=== PATIENT | female | born 2005 | race Caucasian/White ===

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

== ENCOUNTER 2023-01-21 09:48 | Emergency (ER) | payer OTHER, SELFPAY ==
[2023-01-21 10:00] VITALS: BP 115/78; PULSE 82; RESP 16; TEMP 37.2; O2SAT 100
--- NOTE | 2023-01-21 10:05 | WPDEDEXPGENP ---
HPI - General Ped General Chief complaint: Headache Stated complaint: Headaches;fevers History of Present Illness HPI narrative: patient presents with a headache. Patient reports not the worse headache of her life . Patient states she missed work due to her headache and needs a work note. Patient states she has taken Tylenol with no relief does not have any ibuprofen at home to take. Noted eyes is no vomiting states this is the typical headaches and she has had the accident 1 year ago. Patient states she has an appoint with her PCP but is not for a couple weeks. Related Data Home Medications Medication Instructions Recorded Confirmed etonogestrel 68 mg subdermal 1 implant subdermal ONCE 07/20/20 03/01/21 implant (Nexplanon) Allergies Allergy/AdvReac Type Severity Reaction Status Date / Time No Known Allergies Allergy Verified 03/01/21 14:46 Pediatric Review of Systems Review of Systems: CONSTITUTIONAL: Denies fever, chills, or sweats. EYES: Denies visual changes, redness, or discharge. ENT: Denies rhinorrhea, congestion, sore throat, or otalgia. CARDIOVASCULAR: Denies chest pain, palpitations, or edema. RESPIRATORY: Denies cough or dyspnea. GASTROINTESTINAL: Denies abdominal pain, nausea, vomiting, or diarrhea. GENITOURINARY: Denies dysuria or hematuria. SKIN: Denies rash or itching. MUSCULOSKELETAL: Denies back pain, joint pain, or myalgia. NEUROLOGIC: Denies headache, numbness, or weakness. PSYCHIATRIC: Denies anxiety or depression. [facility] Past Medical History Medical History (Updated 01/21/23 @ 10:12 by YARITZA Ashley) Anxiety Asthma History of hand fracture right hand Obese Surgical History Surgical History (Updated 10/10/20 @ 19:08 by YARITZA Lloyd) No significant past surgical history Family History Family History (Updated 10/10/20 @ 19:09 by YARITZA Lloyd) Father Obese Mother Asthma Diabetes mellitus Social History Social History (Updated 03/06/21 @ 21:51 by Stefania Kerns NP) Smoking status: Never smoker Alcohol intake: never Substance use: never Living arrangements: with family Occupation/Education: student Gender identity (if verbalized by the patient): Female Comments At time of signature, agree with nursing past medical, surgical, social and family history. There is no relevant family history pertinent to the presenting complaint Pediatric Exam Narrative: Physical exam: GENERAL: Well-appearing, well-nourished, and in no acute distress. HEAD: Normocephalic, atraumatic. EYES: PERRLA and EOMI. ENT: Nares clear, no rhinorrhea or epistaxis. Mucous membranes moist. NECK: Supple. CHEST: Clear to auscultation. No respiratory distress. HEART: Regular rate and rhythm. No murmur heard. Normal peripheral pulses. ABDOMEN: Soft, nontender, nondistended, normal active bowel sounds. EXTREMITIES: Normal range of motion. No edema. SKIN: Warm, dry, no rash. NEURO: No focal deficits. Alert and oriented x3. Mushtaq Coma Scale Eye Opening: Spontaneous 4 Mushtaq Coma Scale Motor: Obeys Commands 6 Mushtaq Coma Scale Verbal: Oriented 5 [place] Coma Scale Total 15 Normal neuro exam SPEECH IS CLEAR. NO LANGUAGE DEFICITS. CRANIAL NERVES: PUPILS EQUAL, ROUND, AND REACTIVE TO LIGHT. VISUAL HERNANDEZ FULL. EXTRA-OCULAR MOVEMENTS INTACT. NO NYSTAGMUS NOTED. FACIAL SENSATION INTACT TO LIGHT TOUCH. FACIAL MOVEMENT FULL AND SYMMETRIC. PALATE MIDLINE. TONGUE MIDLINE, MOVING EQUALLY IN BOTH DIRECTIONS. UVULA IS MIDLINE. SHOULDER SHRUG EQUAL ON BOTH SIDES. BILATERAL HAND GRASP 5/5. GAIT NORMAL. HEEL TO TOE AND TANDEM WALK NORMAL. FINGER TO NOSE NORMAL. NEG ROMBERG. Course Course Level of Care: Express Care Visit Discharge Plan Discharge Clinical Impression: Headache Patient Disposition: Home, Self-Care Condition: Stable Instructions: Chronic Post Traumatic Headache (ED) Additional Instructions: Take ibuprofen as prescribed Res
== END 2023-01-21 10:18 | disposition home or self-care (01) ==
PROVIDERS: Emergency Provider Nurse Practitioner Family; PCP Family Medicine
DX: R51.9 Headache, unspecified (principal); J45.909 Unspecified asthma, uncomplicated; E66.9 Obesity, unspecified
CPT/HCPCS: 99213; G0463

== ENCOUNTER 2025-03-15 10:16 | Emergency (ER) | payer OTHER, SELFPAY ==
--- OUTSIDE RECORDS SUMMARY | 2025-03-15 10:18 | XMS_ITS | Clinical Summary ---
Author Organization [facility] Address [address] [place] [address] Phone Care Team Providers Care Lead Installer Name Role Phone Martina Mullins MD Primary Care Provider Domingo dias Allergies Active Allergy Reactions Criticality Noted Date Comments Aspirin Other (see Comments) 05/30/2023 Dizziness Medications sertraline (ZOLOFT) 50 MG Tablet Take 50 mg by mouth daily. Active ondansetron (ZOFRAN-ODT) 4 MG TABLET DISPERSIBLEIndi cations:Nausea and Vomiting Take 1 Tablet by mouth every 8 hours as needed for Nausea - 1st line. Indications: Nausea and Vomiting 10 Tablet 07/05/2024 Active Social History Tobacco Use Types Packs/Day Years Used Date Smoking Tobacco: Never Smokeless Tobacco: Never Alcohol Use Standard Drinks/Week Comments Never 0 (1 standard drink = 0.6 oz pur e alcohol) AUDIT-C Answer Date Recorded Q1: How often do you have a drink containing alc ohol? Never 08/27/2019 Average Number of Drinks Not on file 020 Frequency of Binge Drinking Not on file 09/2019 Comments No Sex and Gender Information Value Date Recorded Sex Assigned at Female 02/06/2023 8:56 AM CDT Legal Sex Female 1:28 PM [employer] Gender Identity Female 02/06/2023 8:56 AM CDT Sexual Orientation Not on file Last Filed Vital Signs Vital Sign Reading Time Taken Comments Blood Pressure 116/64 07/05/2024 11:35 AM [employer] Pulse 110 07/05/2024 11:35 AM [employer] Temperature 37.5 C (99.5 F) 07/05/2024 10:15 AM [employer] Respiratory Rate 16 07/05/2024 11:35 AM [employer] Oxygen Saturation 100% 07/05/2024 11:35 AM [employer] Inhaled Oxygen Concentration - - Weight 83.9 kg (185 lb) 07/05/2024 10:15 AM [employer] Height 154.9 cm (5' 1) 07/05/2024 10:15 AM [employer] Body Mass Index 34.96 07/05/2024 10:15 AM [employer] Plan of Treatment Health Maintenance Due Date Last Done Comments Hepatitis C Virus (HCV) Screening 2003 Human Papillomavirus (HPV) Immunization (1 - 3-dose series) 2018 Pap Smear 2024 Influenza Immunization (#1) 02/23/202504/25, 03/25/2014, 04/07/2013, Additional history exists SARS-COV-2 Immunization ( season) 2025 06/13/2021, 10/26/2020, 10/02/2020 Respiratory Syncytial Virus (RSV) Immunization (Adult) (1 - 1-dose 75+ series) 2078 Hepatitis B Immunization Completed 004, 2003, 2003, Additional history exists Polio (IPV) Immunization Discontinued 004, 2003, 2003, Additional history exists Pneumococcal Immunization Combined Aged Out 08/18/2004, 2003, 2003 No longer eligible based on patient's age to complete this topic Hepatitis A Immunization Discontinued 006, 06/20/2005, 05/31/2005 Measles Mumps Rubella (MMR) Immunization Discontinued 11/15/2007, 08/18/2004 Varicella Immunization Discontinued 11/15/2007, 2003 DTaP/Tdap/Td Immunization Discontinued 2013, 01/03/2008, 08/18/2004, Additional history exists TdaP Immunization Completed 10/29/2013 Meningococcal Immunization (ACWY) Completed 08/13/2019, 01/20/2015 Meningococcal B Immunization Completed 07/25/2021, 01/10/2021 Rotavirus Immunization Aged Out No lo nger eligible based on patient's age to complete this topic Insurance [facility] Care Teams Lead Installer Relationship Specialty Start Date End Date Martina Mullins MD PCP - General Family Medicine 07/05/24
[2025-03-15 10:22] VITALS: BP 116/71; PULSE 84; RESP 20; TEMP 36.7; O2SAT 100
--- OUTSIDE RECORDS SUMMARY | 2025-03-15 10:22 | XMS_ITS | Clinical Summary ---
Author Organization [facility] [place] Address [address] [address] Care Team Providers Care Engine Lathe Tender Name Role Phone Unavailable Primary Care Provider Unavailabl e Allergies No known active allergies Medications cetirizine (ZyrTEC) 10 mg tablet TK 1 T PO D 0 09/16/2018 Active Active Problems No known active problems Family History Medical History Relation Name Comments Alzheimer's Disease Paternal Grandmother Relation Name Status Comments Father Alive Half-Sister Alive Maternal Grandfather Alive Maternal Grandmother Alive Mother Alive Paternal Grandfather Alive Paternal Grandmother Social History Tobacco Use Types Packs/Day Years Used Date Smoking Tobacco: Never Smokeless Tobacco: Never Alcohol Use Standard Drinks/Week Comments No 0 (1 standard drink = 0.6 oz pur e alcohol) Comments No Sex and Gender Information Value Date Recorded Sex Assigned at Not on file Legal Sex Female 10:31 AM [employer] Gender Identity Not on file Sexual Orientation Not on file Last Filed Vital Signs Vital Sign Reading Time Taken Comments Blood Pressure 106/70 09/25/2018 8:23 AM CDT Pulse 74 09/25/2018 8:23 AM CDT Temperature 36.6 C (97.9 F) 09/25/2018 8:23 AM CDT Respiratory Rate 18 09/25/2018 8:23 AM CDT Oxygen Saturation 99% 09/25/2018 8:23 AM CDT Inhaled Oxygen Concentration - - Weight 73.9 kg (163 lb) 09/25/2018 8:23 AM CDT Height 154.9 cm (5' 1) 09/25/2018 8:23 AM CDT Body Mass Index 30.8 09/25/2018 8:23 AM CDT Plan of Treatment Health Maintenance Due Date Last Done Comments CHLAMYDIA SCREENING (ANNUAL) 11-24 YEARS 2014 HPV VACCINES (1 - 3-dose series) 2018 DTAP/TDAP/TD VACCINES (1 - Tdap) 2022 HEPATITIS B VACCINES (1 of 3 - 19+ 3-dose series) 04/25 CERVICAL CANCER SCREENING 2024 HPV/Cotest (21-29) 2024 PAP SMEAR 2024 INFLUENZA VACCINE (#1) 2025
--- NOTE | 2025-03-15 10:30 | ED.GENADULT ---
HPI - General Adult General Chief complaint: Upper Respiratory Infection Stated complaint: Strep test for work Source: patient Mode of arrival: ambulatory Limitations: no limitations History of Present Illness HPI narrative: Patient presents for evaluation of sore throat since yesterday. She came in today for strep test at the request of her employer. She states one of her coworkers is susceptible to strep, and she was encouraged by her employer to come in for testing. She has had a mild cough for two days. No fever, chills, nausea, vomiting or SOB. She is not taking any medications for her symptoms. She does vape. Related Data Home Medications ?Medication ?Instructions ?Recorded ?Confirmed ?Last Taken ?Type No Home Medications 03/15/25 Unknown History Allergies Allergy/AdvReac Type Severity Reaction Status Date / Time No Known Allergies Allergy Verified 03/15/25 10:26 Review of Systems Review of Systems: CONSTITUTIONAL: Denies fever, chills, or sweats. EYES: Denies visual changes, redness, or discharge. ENT: Reports sore throat. Denies rhinorrhea, congestion, or otalgia. CARDIOVASCULAR: Denies chest pain, palpitations, or edema. RESPIRATORY: Reports occasional cough. Denies shortness of breath. GASTROINTESTINAL: Denies abdominal pain, nausea, vomiting, or diarrhea. GENITOURINARY: Denies dysuria or hematuria. SKIN: Denies rash or itching. MUSCULOSKELETAL: Denies back pain, joint pain, or myalgia. NEUROLOGIC: Denies headache, numbness, dizziness, or weakness. PSYCHIATRIC: Denies anxiety or depression. [facility] Past Medical History Medical History Obese History of hand fracture right hand Asthma Anxiety Surgical History Surgical History No significant past surgical history Family History Family History Father Obese Mother Asthma Diabetes mellitus Social History Social History Smoking status: Current some day smoker Tobacco type: e-cigarettes/vaping Alcohol intake: never Substance use: never Living arrangements: with family Occupation/Education: student Gender identity (if verbalized by the patient): Female Exam Narrative: GENERAL: Well-appearing, well-nourished, and in no acute distress. HEAD: Normocephalic, atraumatic. EYES: PERRLA and EOMI. ENT: Nares clear, no rhinorrhea or epistaxis. Mucous membranes moist. Oropharynx without tonsillar hypertrophy exudate or other lesions. Bilateral TMs pearly russell nonbulging NECK: Supple. No adenopathy or masses. No carotid bruits or JVD CHEST: Clear to auscultation. No respiratory distress. No wheezes rales or rhonchi HEART: Regular rate and rhythm. No murmur heard. Normal peripheral pulses. ABDOMEN: Soft, nontender, nondistended, normal active bowel sounds. EXTREMITIES: Normal range of motion. No edema. SKIN: Warm, dry, no rash. NEURO: No focal deficits. Alert and oriented x3. PSYCH: Normal mood and affect. Course Course Emergency Course: This is a 19-year-old female presented for evaluation of sore throat. Rapid strep negative. Will send throat culture. [id number] agents for symptom management. Primary provider. Go to the ER worsening symptoms. Patient in agreement with plan of care Level of Care: Express Care Visit Vital Signs Vital signs: Vital Signs Temperature 36.7 C 03/15/25 10:22 Pulse Rate 84 03/15/25 10:22 Respiratory Rate 03/15/25 10:22 Blood Pressure 116/71 03/15/25 10:22 Pulse Oximetry 100 03/15/25 10:22 Oxygen Delivery Room Air 03/15/25 10:22 Temperature 36.7 C 03/15/25 10:22 Pulse Rate 84 03/15/25 10:22 Respiratory Rate 03/15/25 10:22 Blood Pressure 116/71 03/15/25 10:22 Pulse Oximetry 100 03/15/25 10:22 Oxygen Delivery Room Air 03/15/25 10:22 Medical Decision Making Vital Signs Vital Signs: Vital Signs Temperature 36.7 C 03/15/25 10:22 Pulse Rate 84 03/15/25 10:22 Respiratory Rate 20 03/15/25 10:22 Blood Pressure 116/71 03/15/25 10:22 Pulse Oximetry 100 03/15/25 10:22 Oxygen Delivery Room Air 03/15/25 10:22 Temperature 36.7 C 03/15/25 10:22 Pulse Rate 84 03/15/25 10:22 Respiratory Rate 20 03/15/25 10:22 Blood Pressure 116/71 03/15/25 10:22 Pulse Oximetry 100 03/15/25 10:22 Oxygen Delivery Room Air 03/15/25 10:22 Lab Data Labs: Lab Results 03/15/25 Range/Units 10:38 POC Grp A Strep Screen Negative (Negative) Discharge Plan Discharge Clinical Impression: Pharyngitis Patient Disposition: Home Condition: Stable Instructions: Antibiotic Form, Pharyngitis (ED) Patient Language: Mongolian Prescriptions: No Action No Home Medications Follow-up/Referrals: Chel Matthews DO [Physician, Family Practice] Stand Alone Forms: Work/School Release IP Time of Disposition: 10:34
[2025-03-15 10:39] LABS: EDSTREPNEGPOS1 Negative (Negative)
== END 2025-03-15 10:38 | disposition home or self-care (01) ==
PROVIDERS: Emergency Provider Nurse Practitioner
DX: J02.9 Acute pharyngitis, unspecified (principal); F17.290 Nicotine dependence, other tobacco product, uncomplicated; J45.909 Unspecified asthma, uncomplicated; E66.9 Obesity, unspecified; Z68.34 Body mass index [BMI] 34.0-34.9, adult
CPT/HCPCS: 87081; 87880; 99213; G0463